=== PATIENT | female | born 2000 | race Caucasian/White ===

== ENCOUNTER 2023-02-22 19:09 | Emergency (ER) | payer SELFPAY ==
[2023-02-22] MEDS ORDERED: Ibuprofen 200 MG TAB ONE (19:32)
[2023-02-22] MEDS ORDERED: Acetaminophen 500 MG TAB ONE (19:32)
[2023-02-22 19:58] LABS: SARS-CoV-2 NAA Rapid Test Not Detected (NotDetected)
== END 2023-02-22 21:10 | disposition home or self-care (01) ==
LOC: ERS 19:09
DX: J10.1 Influenza due to other identified influenza virus with other respiratory manifestations (principal); F17.290 Nicotine dependence, other tobacco product, uncomplicated; Z20.822 Contact with and (suspected) exposure to COVID-19
CPT/HCPCS: 99283

== ENCOUNTER 2023-09-04 13:26 | Emergency (ER) | payer SELFPAY | END 2023-09-04 15:45 | disposition home or self-care (01) | LOC: ERS 13:26 | DX: L55.0 Sunburn of first degree (principal); L55.1 Sunburn of second degree; F17.290 Nicotine dependence, other tobacco product, uncomplicated | CPT/HCPCS: 99282 ==